=== PATIENT | male | born 1980 | race African-American/Black ===

== ENCOUNTER 2016-11-04 19:59 | Inpatient (IN) | payer MEDICAID ==
[~2016-11-04] VITALS: Ht 165.1 cm; Wt 114.5 kg
[2016-11-04] MEDS ORDERED: HALOPERIDOL 5 MG TABLET PO PRN (20:45)
[2016-11-04 21:31] VITALS: BP 118/64
[2016-11-04] MEDS: ZOLPIDEM TARTRATE 10 MG TABLET PO PRN (22:08)
[2016-11-05 06:27] VITALS: BP 121/74
[2016-11-05 08:16] VITALS: BP 129/80
[2016-11-05 08:19] LABS: BASOPHILS % (AUTO) 0.6 % (0.0-2.0); EOSINOPHILS % (AUTO) 1.8 % (1.0-6.0); HEMATOCRIT 45.3 % (41-53); HEMOGLOBIN 14.3 g/dL (13.5-17.5); LYMPHOCYTES # (AUTO) 1.6 K/uL (1.0-4.8); LYMPHOCYTES % (AUTO) 29.4 % (22.0-44.0); MEAN CORPUSCULAR HEMOGLOBIN 25.7 pg (26.0-34.0); MEAN CORPUSCULAR HGB CONC 31.6 G/dL (31.0-37.0); MEAN CORPUSCULAR VOLUME 81 fL (80-100); MONOCYTES # (AUTO) 0.9 K/uL (0.1-1.0); MONOCYTES % (AUTO) 16.5 % (2.0-9.0); NEUTROPHILS # (AUTO) 2.7 K/uL (1.8-7.7); NEUTROPHILS % (AUTO) 51.7 % (40.0-70.0); PLATELET COUNT (AUTO) 319 K/uL (150-450); RED BLOOD CELL COUNT(AUTO) 5.56 MIL/uL (4.50-5.90); RED CELL DISTRIBUTION WIDTH 14.9 % (11.5-14.5); WHITE BLOOD COUNT (AUTO) 5.3 K/uL (4.5-11.0)
[2016-11-05] MEDS ORDERED: MAG HYDROX/AL HYDROX/SIMETH ES 30 ML SUSPENSION UDCUP PO PRN (08:30)
[2016-11-05] MEDS ORDERED: BACITRACIN 28.4 GM OINTMENT TP PRN (08:30)
[2016-11-05] MEDS ORDERED: CloNIDine HCL 0.1 MG TABLET PO PRN (08:30)
[2016-11-05] MEDS ORDERED: BENZOCAINE/MENTHOL LOZENGE MM PRN (08:30)
[2016-11-05] MEDS ORDERED: PETROLATUM,WHITE 71 GM JELLY TP PRN (08:30)
[2016-11-05] MEDS ORDERED: ACETAMINOPHEN 325 MG TABLET PO PRN (08:30)
[2016-11-05] MEDS ORDERED: ALBUTEROL SULFATE HFA 90 MCG/PUFF 8 GM INHALER IH PRN (08:30)
[2016-11-05] MEDS ORDERED: IBUPROFEN 600 MG TABLET PO PRN (08:30)
[2016-11-05] MEDS ORDERED: ONDANSETRON HCL 4 MG TABLET PO PRN (08:30)
[2016-11-05] MEDS ORDERED: MAGNESIUM HYDROXIDE SUSPENSION 30 ML UDCUP PO PRN (08:30)
[2016-11-05] MEDS ORDERED: LOPERAMIDE HCL 2 MG CAPSULE PO PRN (08:30)
[2016-11-05 08:41] LABS: HEMOGLOBIN A1C 6.1 % (4.5-6.2)
[2016-11-05 08:48] LABS: ALANINE AMINOTRANSFERASE 93 U/L (12-78); ALBUMIN 3.9 g/dL (3.4-5.0); ANION GAP 9 mmol/L (8-16); ASPARTATE AMINOTRANSFERASE 64 U/L (15-37); BILIRUBIN,TOTAL 0.7 mg/dL (0.1-1.0); CALCIUM, TOTAL 9.2 mg/dL (8.8-10.5); CARBON DIOXIDE 28 mmol/L (22-29); CHLORIDE 106 mmol/L (98-107); CHOL/HDL RATIO 2.6 (4.2-7.3); CREATININE 1.11 mg/dL (0.60-1.30); GLOMERULAR FILTR. RATE CALC > 60 mL/min (>60); POTASSIUM 3.9 mmol/L (3.5-5.1); SODIUM SERUM 143 mmol/L (136-145); THYROID STIMULATING HORMONE 1.72 uIU/mL (0.36-3.74); TOTAL PROTEIN, SERUM 8.1 g/dL (6.4-8.2); UREA NITROGEN, BLOOD 11 mg/dL (7-18)
[2016-11-05] MEDS: MAGNESIUM SULFATE 454 GM BOX TP SCH (09:00)
[2016-11-05] MEDS: TERBINAFINE HCL 1% 30 GM CREAM TP SCH ×2 (10:08→17:01)
[2016-11-05 16:10] VITALS: BP 132/65
[2016-11-05] MEDS: ZOLPIDEM TARTRATE 10 MG TABLET PO PRN (21:35)
[2016-11-06 00:38] VITALS: BP 124/76
[2016-11-06 08:13] VITALS: BP 131/68
[2016-11-06] MEDS: MAGNESIUM SULFATE 454 GM BOX TP SCH (09:00)
[2016-11-06] MEDS: TERBINAFINE HCL 1% 30 GM CREAM TP SCH ×2 (09:00→16:55)
[2016-11-06] MEDS ORDERED: SERTRALINE HCL 50 MG TABLET PO SCH (09:00)
[2016-11-06 16:00] VITALS: BP 136/77
[2016-11-06] MEDS: ZOLPIDEM TARTRATE 10 MG TABLET PO PRN (22:18)
[2016-11-07 03:36] VITALS: BP 126/77
[2016-11-07 08:13] VITALS: BP 107/63
[2016-11-07] MEDS: TERBINAFINE HCL 1% 30 GM CREAM TP SCH ×2 (08:15→16:07)
[2016-11-07] MEDS: LORazepam 2 MG TABLET PO PRN ×2 (08:15→16:21)
[2016-11-07] MEDS: SERTRALINE HCL 100 MG TABLET PO SCH (08:15)
[2016-11-07] MEDS: MAGNESIUM SULFATE 454 GM BOX TP SCH (08:16)
[2016-11-07 16:00] VITALS: BP 131/89
[2016-11-08 04:01] VITALS: BP 132/77
[2016-11-08 08:13] VITALS: BP 146/78
[2016-11-08] MEDS: MAGNESIUM SULFATE 454 GM BOX TP SCH (09:00)
[2016-11-08] MEDS: SERTRALINE HCL 100 MG TABLET PO SCH (09:12)
[2016-11-08] MEDS: TERBINAFINE HCL 1% 30 GM CREAM TP SCH ×2 (09:13→16:27)
[2016-11-08 16:00] VITALS: BP 138/65
[2016-11-08] MEDS: LORazepam 2 MG TABLET PO PRN (19:39)
[2016-11-08] MEDS: ZOLPIDEM TARTRATE 10 MG TABLET PO PRN (20:36)
[2016-11-09 03:42] VITALS: BP 130/74
[2016-11-09 08:45] VITALS: BP 125/63
[2016-11-09] MEDS: SERTRALINE HCL 100 MG TABLET PO SCH ×2 (09:00→10:51)
[2016-11-09] MEDS: TERBINAFINE HCL 1% 30 GM CREAM TP SCH ×3 (09:00→17:26)
[2016-11-09] MEDS: MAGNESIUM SULFATE 454 GM BOX TP SCH (09:00)
[2016-11-09] MEDS: LORazepam 2 MG TABLET PO PRN (10:51)
[2016-11-09 14:11] LABS: HEPATITIS Bs ANTIGEN SCREEN P Negative (Negative); HEPATITIS C AB SCREEN <0.1 s/co ratio (0.0-0.9)
[2016-11-09] MEDS ORDERED: LORazepam 2 MG/ML VIAL ONE (15:51)
[2016-11-09] MEDS ORDERED: HALOPERIDOL LACTATE 5 MG/ML VIAL ONE (15:52)
[2016-11-09] MEDS ORDERED: DiphenhydrAMINE HCL 50 MG/ML VIAL ONE (15:53)
[2016-11-09] MEDS ORDERED: LORazepam 2 MG/ML VIAL IM ONE (16:15)
[2016-11-09] MEDS ORDERED: HALOPERIDOL LACTATE 5 MG/ML VIAL IM ONE (16:15)
[2016-11-09] MEDS ORDERED: DiphenhydrAMINE HCL 50 MG/ML VIAL IM ONE (16:15)
[2016-11-09 16:38] VITALS: BP 138/72
[2016-11-09] MEDS: BACITRACIN 28.4 GM OINTMENT TP SCH (17:25)
[2016-11-10 06:48] VITALS: BP 125/61
[2016-11-10 08:13] VITALS: BP 134/72
[2016-11-10] MEDS ORDERED: TRIAMCINOLONE 0.1% 15 GM OINTMENT TP SCH (09:00)
[2016-11-10] MEDS ORDERED: NYSTATIN 30 GM CREAM TP SCH (09:00)
[2016-11-10] MEDS: SERTRALINE HCL 100 MG TABLET PO SCH (09:55)
[2016-11-10] MEDS: BACITRACIN 28.4 GM OINTMENT TP SCH (09:56)
[2016-11-10] MEDS: TERBINAFINE HCL 1% 30 GM CREAM TP SCH (09:56)
[2016-11-10] MEDS ORDERED: SERT100T12 PO (11:07)
== END 2016-11-10 13:30 | disposition home or self-care (01) | DRG 751 ==
LOC: B3A 20:44 → EDSTATUS 20:49
PROVIDERS: ATTEND Psychiatry & Neurology Psychiatry
DX: F33.2 Major depressive disorder, recurrent severe without psychotic features (principal); Z68.41 Body mass index [BMI] 40.0-44.9, adult; F12.90 Cannabis use, unspecified, uncomplicated; B35.3 Tinea pedis; B35.1 Tinea unguium; G47.00 Insomnia, unspecified; E66.01 Morbid (severe) obesity due to excess calories; Z88.8 Allergy status to other drugs, medicaments and biological substances; Z72.0 Tobacco use; Z91.14 Patient's other noncompliance with medication regimen
CPT/HCPCS: 80074; 83036; 84439; 84443; J1200; J1630; J2060

== ENCOUNTER 2016-11-11 20:15 | Inpatient (IN) | payer MEDICAID ==
[~2016-11-11] VITALS: Ht 167.6 cm; Wt 108.9 kg
[~2016-11-11 20:15] MED LIST: SERT100T12 PO
[2016-11-11 21:33] LABS: BASOPHILS % (AUTO) 0.1 % (0.0-2.0); EOSINOPHILS % (AUTO) 0.6 % (1.0-6.0); HEMATOCRIT 46.1 % (41-53); HEMOGLOBIN 14.7 g/dL (13.5-17.5); LYMPHOCYTES # (AUTO) 1.8 K/uL (1.0-4.8); LYMPHOCYTES % (AUTO) 25.2 % (22.0-44.0); MEAN CORPUSCULAR HEMOGLOBIN 25.4 pg (26.0-34.0); MEAN CORPUSCULAR HGB CONC 31.7 G/dL (31.0-37.0); MEAN CORPUSCULAR VOLUME 80 fL (80-100); MONOCYTES # (AUTO) 0.8 K/uL (0.1-1.0); MONOCYTES % (AUTO) 10.7 % (2.0-9.0); NEUTROPHILS # (AUTO) 4.6 K/uL (1.8-7.7); NEUTROPHILS % (AUTO) 63.4 % (40.0-70.0); PLATELET COUNT (AUTO) 360 K/uL (150-450); RED BLOOD CELL COUNT(AUTO) 5.77 MIL/uL (4.50-5.90); RED CELL DISTRIBUTION WIDTH 14.6 % (11.5-14.5); WHITE BLOOD COUNT (AUTO) 7.2 K/uL (4.5-11.0)
[2016-11-11 21:34] LABS: ANION GAP 11 mmol/L (8-16); CALCIUM, TOTAL 9.5 mg/dL (8.8-10.5); CARBON DIOXIDE 26 mmol/L (22-29); CHLORIDE 104 mmol/L (98-107); CREATININE 1.13 mg/dL (0.60-1.30); GLOMERULAR FILTR. RATE CALC > 60 mL/min (>60); POTASSIUM 3.6 mmol/L (3.5-5.1); SODIUM SERUM 141 mmol/L (136-145); UREA NITROGEN, BLOOD 15 mg/dL (7-18)
[2016-11-11 21:44] LABS: ALANINE AMINOTRANSFERASE 93 U/L (12-78); ASPARTATE AMINOTRANSFERASE 62 U/L (15-37); BILIRUBIN,TOTAL 0.6 mg/dL (0.1-1.0); TOTAL PROTEIN, SERUM 8.1 g/dL (6.4-8.2)
[2016-11-11] MEDS ORDERED: MAG HYDROX/AL HYDROX/SIMETH ES 30 ML SUSPENSION UDCUP PO PRN (22:45)
[2016-11-11] MEDS ORDERED: ACETAMINOPHEN 325 MG TABLET PO PRN (22:45)
[2016-11-11] MEDS ORDERED: MAGNESIUM HYDROXIDE SUSPENSION 30 ML UDCUP PO PRN (22:45)
[2016-11-11 23:04] LABS: CHOL/HDL RATIO 2.6 (4.2-7.3)
[2016-11-12] MEDS: ZOLPIDEM TARTRATE 10 MG TABLET PO PRN (02:29)
[2016-11-12 02:34] VITALS: BP 144/64
[2016-11-12 08:10] VITALS: BP 124/77
[2016-11-12] MEDS: HALOPERIDOL 5 MG TABLET PO PRN (08:38)
[2016-11-12] MEDS: LORazepam 2 MG TABLET PO PRN ×2 (08:38→16:14)
[2016-11-12] MEDS ORDERED: CloNIDine HCL 0.1 MG TABLET PO PRN (09:30)
[2016-11-12] MEDS ORDERED: ACETAMINOPHEN 325 MG TABLET PO PRN (09:30)
[2016-11-12] MEDS ORDERED: BACITRACIN 28.4 GM OINTMENT TP PRN (09:30)
[2016-11-12] MEDS ORDERED: LOPERAMIDE HCL 2 MG CAPSULE PO PRN (09:30)
[2016-11-12] MEDS ORDERED: PETROLATUM,WHITE 71 GM JELLY TP PRN (09:30)
[2016-11-12] MEDS ORDERED: ONDANSETRON HCL 4 MG TABLET PO PRN (09:30)
[2016-11-12] MEDS ORDERED: BENZOCAINE/MENTHOL LOZENGE MM PRN (09:30)
[2016-11-12] MEDS ORDERED: ALBUTEROL SULFATE HFA 90 MCG/PUFF 8 GM INHALER IH PRN (09:30)
[2016-11-12 16:10] VITALS: BP 126/72
[2016-11-13 05:16] VITALS: BP 122/70
[2016-11-13 08:34] VITALS: BP 113/63
[2016-11-13] MEDS: TERBINAFINE HCL 1% 30 GM CREAM TP SCH ×2 (09:00→16:56)
[2016-11-13] MEDS: AQUAPHOR OINTMENT 50 GM TUBE TP SCH ×2 (09:00→16:56)
[2016-11-13] MEDS: ARIPiprazole 5 MG TABLET PO SCH (09:08)
[2016-11-13] MEDS: SERTRALINE HCL 100 MG TABLET PO SCH (09:09)
[2016-11-13] MEDS: LORazepam 2 MG TABLET PO PRN ×2 (09:11→17:06)
[2016-11-13 16:00] VITALS: BP 120/75
[2016-11-13] MEDS: HALOPERIDOL 5 MG TABLET PO PRN (17:06)
[2016-11-13] MEDS: ZOLPIDEM TARTRATE 10 MG TABLET PO PRN (22:36)
[2016-11-14 05:08] VITALS: BP 118/76
[2016-11-14 08:26] VITALS: BP 104/65
[2016-11-14] MEDS: AQUAPHOR OINTMENT 50 GM TUBE TP SCH ×2 (09:23→16:57)
[2016-11-14] MEDS: ARIPiprazole 5 MG TABLET PO SCH (09:24)
[2016-11-14] MEDS: SERTRALINE HCL 100 MG TABLET PO SCH (09:24)
[2016-11-14] MEDS: TERBINAFINE HCL 1% 30 GM CREAM TP SCH ×2 (09:24→16:57)
[2016-11-14 16:09] VITALS: BP 114/68
[2016-11-14] MEDS: HALOPERIDOL 5 MG TABLET PO PRN (19:15)
[2016-11-14] MEDS: LORazepam 2 MG TABLET PO PRN (19:15)
[2016-11-14 20:34] VITALS: BP 128/69
[2016-11-14] MEDS: IBUPROFEN 600 MG TABLET PO PRN (20:35)
[2016-11-14] MEDS: ZOLPIDEM TARTRATE 10 MG TABLET PO PRN (20:36)
[2016-11-15 04:44] VITALS: BP 110/77
[2016-11-15 08:33] VITALS: BP 125/66
[2016-11-15] MEDS: TERBINAFINE HCL 1% 30 GM CREAM TP SCH ×2 (09:28→16:08)
[2016-11-15] MEDS: AQUAPHOR OINTMENT 50 GM TUBE TP SCH ×2 (09:28→16:08)
[2016-11-15] MEDS: ARIPiprazole 5 MG TABLET PO SCH (09:29)
[2016-11-15] MEDS: SERTRALINE HCL 100 MG TABLET PO SCH (09:29)
[2016-11-15 16:00] VITALS: BP 126/87
[2016-11-15] MEDS: HALOPERIDOL 5 MG TABLET PO PRN (16:08)
[2016-11-15] MEDS: LORazepam 2 MG TABLET PO PRN (16:08)
[2016-11-15 18:52] VITALS: BP 118/78
[2016-11-15] MEDS: IBUPROFEN 600 MG TABLET PO PRN (18:52)
[2016-11-16 05:19] VITALS: BP 115/71
[2016-11-16 08:10] VITALS: BP 137/67
[2016-11-16] MEDS: ARIPiprazole 5 MG TABLET PO SCH (08:17)
[2016-11-16] MEDS: SERTRALINE HCL 100 MG TABLET PO SCH (08:17)
[2016-11-16] MEDS: TERBINAFINE HCL 1% 30 GM CREAM TP SCH ×2 (08:19→16:58)
[2016-11-16] MEDS: AQUAPHOR OINTMENT 50 GM TUBE TP SCH ×2 (08:19→16:58)
[2016-11-16 08:31] LABS: CHOL/HDL RATIO 2.7 (4.2-7.3)
[2016-11-16] MEDS: CEPHALEXIN MONOHYDRATE 500 MG CAPSULE PO SCH ×2 (09:06→16:58)
[2016-11-16 15:00] VITALS: BP 127/87
[2016-11-16] MEDS: IBUPROFEN 600 MG TABLET PO PRN (15:00)
[2016-11-16 16:00] VITALS: BP 134/88
[2016-11-16] MEDS: HALOPERIDOL 5 MG TABLET PO PRN (16:58)
[2016-11-16] MEDS: LORazepam 2 MG TABLET PO PRN (16:58)
[2016-11-16] MEDS: ZOLPIDEM TARTRATE 10 MG TABLET PO PRN (20:27)
[2016-11-17 06:02] VITALS: BP 124/75
[2016-11-17 08:10] VITALS: BP 124/61
[2016-11-17] MEDS: IBUPROFEN 600 MG TABLET PO PRN (08:17)
[2016-11-17] MEDS: ARIPiprazole 10 MG TABLET PO SCH (08:17)
[2016-11-17] MEDS: SERTRALINE HCL 100 MG TABLET PO SCH (08:17)
[2016-11-17] MEDS: CEPHALEXIN MONOHYDRATE 500 MG CAPSULE PO SCH ×2 (08:17→16:34)
[2016-11-17] MEDS: NYSTATIN 30 GM CREAM TP SCH (08:18)
[2016-11-17] MEDS: TERBINAFINE HCL 1% 30 GM CREAM TP SCH ×2 (08:18→16:35)
[2016-11-17] MEDS: AQUAPHOR OINTMENT 50 GM TUBE TP SCH ×2 (08:20→16:34)
[2016-11-17] MEDS: MAGNESIUM SULFATE 454 GM BOX TP SCH (09:00)
[2016-11-17 15:10] LABS: HEPATITIS C AB SCREEN <0.1 s/co ratio (0.0-0.9)
[2016-11-17 16:00] VITALS: BP 131/70
[2016-11-17] MEDS: LORazepam 2 MG TABLET PO PRN (16:34)
[2016-11-17] MEDS: HALOPERIDOL 5 MG TABLET PO PRN (16:34)
[2016-11-18 04:25] VITALS: BP 128/67
[2016-11-18] MEDS: CEPHALEXIN MONOHYDRATE 500 MG CAPSULE PO SCH (08:22)
[2016-11-18] MEDS: ARIPiprazole 10 MG TABLET PO SCH (08:22)
[2016-11-18] MEDS: SERTRALINE HCL 100 MG TABLET PO SCH (08:22)
[2016-11-18 08:30] VITALS: BP 115/68
[2016-11-18 08:49] LABS: THYROID STIMULATING HORMONE 1.98 uIU/mL (0.36-3.74)
[2016-11-18] MEDS: MAGNESIUM SULFATE 454 GM BOX TP SCH (09:00)
[2016-11-18] MEDS ORDERED: SERT100T12 PO (10:04)
[2016-11-18] MEDS ORDERED: ARIP10TA14 PO (10:04)
[2016-11-18] MEDS ORDERED: CEPH500 PO (10:04)
[2016-11-18] MEDS: NYSTATIN 30 GM CREAM TP SCH (10:09)
[2016-11-18] MEDS: AQUAPHOR OINTMENT 50 GM TUBE TP SCH (10:09)
[2016-11-18] MEDS: TERBINAFINE HCL 1% 30 GM CREAM TP SCH (10:09)
== END 2016-11-18 13:30 | disposition home or self-care (01) | DRG 751 ==
LOC: EMS 20:17 → EEVIPCON 20:17 → B3A 23:41
PROVIDERS: ADMIT Psychiatry & Neurology Psychiatry; ATTEND Psychiatry & Neurology Psychiatry
DX: F33.2 Major depressive disorder, recurrent severe without psychotic features (principal); B35.3 Tinea pedis; E66.9 Obesity, unspecified; Z88.8 Allergy status to other drugs, medicaments and biological substances; G47.00 Insomnia, unspecified; Z72.0 Tobacco use; Z59.0 Homelessness; Z68.38 Body mass index [BMI] 38.0-38.9, adult
CPT/HCPCS: 84439; 84443; 86706; 86707; 86709; 86803; 87081; 87340; 87350; 99285; G0480

== ENCOUNTER 2018-05-22 22:11 | Inpatient (IN) | payer MEDICAID ==
[~2018-05-22] VITALS: Ht 170.2 cm; Wt 113.1 kg
[~2018-05-22 22:11] MED LIST changes: +ARIP10TA8 PO
[2018-05-22 22:56] LABS: BASOPHILS % (AUTO) 0.5 % (0.0-2.0); EOSINOPHILS % (AUTO) 1.7 % (1.0-6.0); HEMATOCRIT 42.6 % (41-53); HEMOGLOBIN 14.5 g/dL (13.5-17.5); LYMPHOCYTES # (AUTO) 2.5 K/uL (1.0-4.8); MEAN CORPUSCULAR HEMOGLOBIN 27.3 pg (26.0-34.0); MEAN CORPUSCULAR HGB CONC 34.1 G/dL (31.0-37.0); MEAN CORPUSCULAR VOLUME 80 fL (80-100); MONOCYTES # (AUTO) 0.7 K/uL (0.1-1.0); MONOCYTES % (AUTO) 8.5 % (2.0-9.0); NEUTROPHILS # (AUTO) 4.5 K/uL (1.8-7.7); NEUTROPHILS % (AUTO) 57.3 % (40.0-70.0); PLATELET COUNT (AUTO) 347 K/uL (150-450); RED BLOOD CELL COUNT(AUTO) 5.33 MIL/uL (4.50-5.90)
[2018-05-22 23:04] LABS: ANION GAP 8 mmol/L (8-16); CALCIUM, TOTAL 9.1 mg/dL (8.8-10.5); CARBON DIOXIDE 28 mmol/L (22-29); CHLORIDE 103 mmol/L (98-107); CREATININE 0.98 mg/dL (0.60-1.30); GLOMERULAR FILTR. RATE CALC > 60 mL/min (>60); GLUCOSE,RANDOM 75 mg/dL (70-110); POTASSIUM 3.6 mmol/L (3.5-5.1); SODIUM SERUM 139 mmol/L (136-145); UREA NITROGEN, BLOOD 13 mg/dL (7-18)
[2018-05-22 23:10] LABS: ALANINE AMINOTRANSFERASE 99 U/L (12-78); ALBUMIN 3.6 g/dL (3.4-5.0); ALKALINE PHOSPHATASE 123 U/L (46-116); ASPARTATE AMINOTRANSFERASE 48 U/L (15-37); BILIRUBIN,TOTAL 0.4 mg/dL (0.1-1.0); TOTAL PROTEIN, SERUM 7.7 g/dL (6.4-8.2)
[2018-05-23] MEDS ORDERED: QUEtiapine FUMARATE 100 MG TABLET PO PRN (02:30)
[2018-05-23] MEDS ORDERED: ZOLPIDEM TARTRATE 10 MG TABLET PO PRN (02:30)
[2018-05-23 04:05] VITALS: BP 109/69
[2018-05-23 08:14] VITALS: BP 121/67
[2018-05-23] MEDS ORDERED: LOPERAMIDE HCL 2 MG CAPSULE PO PRN (15:15)
[2018-05-23] MEDS ORDERED: MAGNESIUM HYDROXIDE SUSPENSION 30 ML UDCUP PO PRN (15:15)
[2018-05-23] MEDS ORDERED: HydrOXYzine PAMOATE 50 MG CAPSULE PO PRN (15:15)
[2018-05-23] MEDS ORDERED: MAG HYDROX/AL HYDROX/SIMETH ES 30 ML SUSPENSION UDCUP PO PRN (15:15)
[2018-05-23] MEDS ORDERED: GuaiFENesin/D-METHORPHAN [SUGAR-FREE] 200-20MG/10 ML SYRUP UDCUP PO PRN (15:15)
[2018-05-23] MEDS ORDERED: ACETAMINOPHEN 325 MG TABLET PO PRN (15:15)
[2018-05-23] MEDS ORDERED: PROMETHAZINE HCL 25 MG TABLET PO PRN (15:15)
[2018-05-23] MEDS ORDERED: TUBERCULIN, PURIFIED PROTEIN DERIVATIVE 5 TU/0.1 ML SYG ID ONE (15:15)
[2018-05-23] MEDS: THIAMINE HCL 100 MG TABLET PO SCH (16:28)
[2018-05-24 03:51] VITALS: BP 124/71
[2018-05-24] MEDS: LIOTHYRONINE SODIUM 5 MCG TABLET PO SCH (07:04)
[2018-05-24 09:13] VITALS: BP 124/70
[2018-05-24] MEDS: ARIPiprazole 10 MG TABLET PO SCH (09:26)
[2018-05-24] MEDS: SERTRALINE HCL 50 MG TABLET PO SCH (09:26)
[2018-05-24] MEDS: MULTIVITAMINS WITH MINERALS, THERAPEUTIC TABLET PO SCH (09:26)
[2018-05-24] MEDS: FOLIC ACID 1 MG TABLET PO SCH (09:26)
[2018-05-24] MEDS: NALTREXONE HCL 50 MG TABLET PO SCH (09:26)
[2018-05-24] MEDS: THIAMINE HCL 100 MG TABLET PO SCH ×2 (09:27→17:01)
[2018-05-24] MEDS: HALOPERIDOL 5 MG TABLET PO PRN ×2 (09:30→17:01)
[2018-05-24] MEDS: LORazepam 2 MG TABLET PO PRN ×2 (09:30→17:01)
[2018-05-24 10:01] LABS: CHOL/HDL RATIO 2.3 (4.2-7.3); FREE T4 (FREE THYROXINE) 0.82 ng/dL (0.76-1.46); THYROID STIMULATING HORMONE 1.92 uIU/mL (0.36-3.74)
[2018-05-24] MEDS: LACTULOSE 20 GM/30 ML SOLUTION UDCUP PO SCH (17:01)
[2018-05-25] MEDS: LIOTHYRONINE SODIUM 5 MCG TABLET PO SCH (06:23)
[2018-05-25 08:13] VITALS: BP 126/76
[2018-05-25] MEDS: FOLIC ACID 1 MG TABLET PO SCH (08:42)
[2018-05-25] MEDS: MULTIVITAMINS WITH MINERALS, THERAPEUTIC TABLET PO SCH (08:43)
[2018-05-25] MEDS: SERTRALINE HCL 50 MG TABLET PO SCH (08:43)
[2018-05-25] MEDS: LACTULOSE 20 GM/30 ML SOLUTION UDCUP PO SCH ×2 (08:43→16:17)
[2018-05-25] MEDS: THIAMINE HCL 100 MG TABLET PO SCH ×2 (08:43→16:16)
[2018-05-25] MEDS: NALTREXONE HCL 50 MG TABLET PO SCH ×2 (08:43→09:00)
[2018-05-25] MEDS: ARIPiprazole 10 MG TABLET PO SCH (09:00)
[2018-05-25 16:00] VITALS: BP 122/65
[2018-05-25] MEDS: LORazepam 2 MG TABLET PO PRN (16:17)
[2018-05-26 03:31] VITALS: BP 121/83
[2018-05-26] MEDS: LIOTHYRONINE SODIUM 5 MCG TABLET PO SCH (06:14)
[2018-05-26] MEDS: MULTIVITAMINS WITH MINERALS, THERAPEUTIC TABLET PO SCH (08:50)
[2018-05-26] MEDS: FOLIC ACID 1 MG TABLET PO SCH (08:50)
[2018-05-26] MEDS: THIAMINE HCL 100 MG TABLET PO SCH (08:50)
[2018-05-26] MEDS: SERTRALINE HCL 50 MG TABLET PO SCH (08:50)
[2018-05-26] MEDS: ARIPiprazole 10 MG TABLET PO SCH (08:50)
[2018-05-26] MEDS: NALTREXONE HCL 50 MG TABLET PO SCH (08:50)
[2018-05-26] MEDS: LACTULOSE 20 GM/30 ML SOLUTION UDCUP PO SCH (08:52)
[2018-05-26 09:11] VITALS: BP 129/82
[2018-05-26] MEDS ORDERED: SERT50TA12 PO ×2 (13:22→16:00)
[2018-05-26] MEDS ORDERED: ARIP10TA8 PO ×2 (13:22→16:00)
[2018-05-26] MEDS ORDERED: LIOT5 PO ×2 (13:22→15:58)
[2018-05-26] MEDS ORDERED: NALT50TA PO (13:22)
[2018-05-26] MEDS ORDERED: LACT30L PO (15:58)
[2018-05-26] MEDS ORDERED: NALT50TA6 PO (16:00)
== END 2018-05-26 16:35 | disposition home or self-care (01) | DRG 750 ==
LOC: EMS 22:12 → B3A 05-23 02:39
PROVIDERS: ADMIT Psychiatry & Neurology Psychiatry; ATTEND Psychiatry & Neurology Psychiatry
DX: F25.9 Schizoaffective disorder, unspecified (principal); Z91.19 Patient's noncompliance with other medical treatment and regimen; F12.90 Cannabis use, unspecified, uncomplicated; F17.200 Nicotine dependence, unspecified, uncomplicated; Z79.899 Other long term (current) drug therapy; Z90.49 Acquired absence of other specified parts of digestive tract
CPT/HCPCS: 80074; 84439; 84443; 86592; 90686; G0480

== ENCOUNTER 2018-06-19 23:01 | Inpatient (IN) | payer MEDICAID ==
[~2018-06-19] VITALS: Ht 170.2 cm; Wt 116.3 kg
[~2018-06-19 23:01] MED LIST changes: +LACT30L PO; +LIOT5 PO; +NALT50TA PO; +NALT50TA6 PO; -SERT100T12 PO; +SERT50TA12 PO
[2018-06-19 23:25] LABS: BASOPHILS % (AUTO) 0.5 % (0.0-2.0); EOSINOPHILS % (AUTO) 1.3 % (1.0-6.0); HEMOGLOBIN 13.8 g/dL (13.5-17.5); LYMPHOCYTES % (AUTO) 25.3 % (22.0-44.0); MEAN CORPUSCULAR HEMOGLOBIN 26.9 pg (26.0-34.0); MEAN CORPUSCULAR HGB CONC 33.6 G/dL (31.0-37.0); MEAN CORPUSCULAR VOLUME 80 fL (80-100); MONOCYTES # (AUTO) 0.7 K/uL (0.1-1.0); MONOCYTES % (AUTO) 9.1 % (2.0-9.0); NEUTROPHILS % (AUTO) 63.8 % (40.0-70.0); PLATELET COUNT (AUTO) 340 K/uL (150-450); RED BLOOD CELL COUNT(AUTO) 5.11 MIL/uL (4.50-5.90); RED CELL DISTRIBUTION WIDTH 13.9 % (11.5-14.5)
[2018-06-19 23:32] LABS: ANION GAP 6 mmol/L (8-16); CARBON DIOXIDE 29 mmol/L (22-29); CHLORIDE 104 mmol/L (98-107); CREATININE 0.93 mg/dL (0.60-1.30); GLOMERULAR FILTR. RATE CALC > 60 mL/min (>60); GLUCOSE,RANDOM 118 mg/dL (70-110); POTASSIUM 4.4 mmol/L (3.5-5.1); SODIUM SERUM 139 mmol/L (136-145); UREA NITROGEN, BLOOD 16 mg/dL (7-18)
[2018-06-19 23:38] LABS: ALANINE AMINOTRANSFERASE 88 U/L (12-78); ALBUMIN 3.4 g/dL (3.4-5.0); ALKALINE PHOSPHATASE 113 U/L (46-116); ASPARTATE AMINOTRANSFERASE 55 U/L (15-37); BILIRUBIN,TOTAL 0.4 mg/dL (0.1-1.0); TOTAL PROTEIN, SERUM 7.5 g/dL (6.4-8.2)
[2018-06-20] MEDS ORDERED: HALOPERIDOL 5 MG TABLET PO PRN (01:15)
[2018-06-20] MEDS ORDERED: ZOLPIDEM TARTRATE 10 MG TABLET PO PRN (01:15)
[2018-06-20] MEDS ORDERED: LORazepam 2 MG TABLET PO PRN (01:15)
[2018-06-20 02:51] VITALS: BP 132/89
[2018-06-20] MEDS ORDERED: ACETAMINOPHEN 325 MG TABLET PO PRN ×2 (06:30→07:45)
[2018-06-20] MEDS ORDERED: IBUPROFEN 600 MG TABLET PO PRN (06:30)
[2018-06-20] MEDS ORDERED: LIOTHYRONINE SODIUM 5 MCG TABLET PO SCH (06:30)
[2018-06-20] MEDS ORDERED: MAGNESIUM HYDROXIDE SUSPENSION 30 ML UDCUP PO PRN (07:45)
[2018-06-20] MEDS ORDERED: GuaiFENesin/D-METHORPHAN [SUGAR-FREE] 200-20MG/10 ML SYRUP UDCUP PO PRN (07:45)
[2018-06-20] MEDS ORDERED: LOPERAMIDE HCL 2 MG CAPSULE PO PRN (07:45)
[2018-06-20] MEDS ORDERED: MAG HYDROX/AL HYDROX/SIMETH ES 30 ML SUSPENSION UDCUP PO PRN (07:45)
[2018-06-20] MEDS ORDERED: HydrOXYzine PAMOATE 50 MG CAPSULE PO PRN (07:45)
[2018-06-20] MEDS ORDERED: PROMETHAZINE HCL 25 MG TABLET PO PRN (07:45)
[2018-06-20 08:34] VITALS: BP 110/75
[2018-06-20] MEDS ORDERED: MULTIVITAMINS WITH MINERALS, THERAPEUTIC TABLET PO SCH (09:00)
[2018-06-20] MEDS ORDERED: THIAMINE HCL 100 MG TABLET PO SCH (09:00)
[2018-06-20] MEDS ORDERED: FOLIC ACID 1 MG TABLET PO SCH (09:00)
[2018-06-20] MEDS: ARIPiprazole 15 MG TABLET PO SCH (09:20)
[2018-06-20] MEDS: SERTRALINE HCL 50 MG TABLET PO SCH (09:20)
[2018-06-20] MEDS: MULTIVITAMINS WITH MINERALS, THERAPEUTIC TABLET PO SCH (09:20)
[2018-06-20] MEDS: FOLIC ACID 1 MG TABLET PO SCH (09:20)
[2018-06-20] MEDS: THIAMINE HCL 100 MG TABLET PO SCH ×2 (09:20→16:05)
[2018-06-20] MEDS: NALTREXONE HCL 50 MG TABLET PO SCH (09:20)
[2018-06-20] MEDS ORDERED: LIOTHYRONINE SODIUM 5 MCG TABLET PO ONE (11:00)
[2018-06-20 16:21] VITALS: BP 136/68
[2018-06-21 01:41] VITALS: BP 118/71
[2018-06-21] MEDS: LIOTHYRONINE SODIUM 5 MCG TABLET PO SCH (06:51)
[2018-06-21 08:21] LABS: CHOL/HDL RATIO 2.2 (4.2-7.3); FREE T4 (FREE THYROXINE) 0.84 ng/dL (0.76-1.46); THYROID STIMULATING HORMONE 0.67 uIU/mL (0.36-3.74)
[2018-06-21] MEDS: THIAMINE HCL 100 MG TABLET PO SCH ×2 (08:24→16:23)
[2018-06-21] MEDS: NALTREXONE HCL 50 MG TABLET PO SCH (08:24)
[2018-06-21] MEDS: SERTRALINE HCL 50 MG TABLET PO SCH (08:25)
[2018-06-21] MEDS: MULTIVITAMINS WITH MINERALS, THERAPEUTIC TABLET PO SCH (08:25)
[2018-06-21] MEDS: FOLIC ACID 1 MG TABLET PO SCH (08:25)
[2018-06-21] MEDS: ARIPiprazole 15 MG TABLET PO SCH (08:26)
[2018-06-21 08:28] VITALS: BP 136/68
[2018-06-21] MEDS: TERBINAFINE HCL 1% 30 GM CREAM TP SCH ×2 (11:21→21:58)
[2018-06-21] MEDS ORDERED: NALT50TA PO (14:44)
[2018-06-21] MEDS ORDERED: LIOT5 PO (14:44)
[2018-06-21] MEDS ORDERED: SERT100T12 PO (14:44)
[2018-06-21] MEDS ORDERED: ARIP15TA2 PO (14:44)
[2018-06-21 16:22] VITALS: BP 140/93
[2018-06-22 00:12] VITALS: BP 138/63
[2018-06-22] MEDS: LIOTHYRONINE SODIUM 5 MCG TABLET PO SCH (06:35)
[2018-06-22] MEDS ORDERED: TERB30CR TP ×2 (07:59→08:02)
[2018-06-22] MEDS ORDERED: ARIP15TA2 PO (08:05)
[2018-06-22] MEDS ORDERED: SERT100T12 PO (08:05)
[2018-06-22] MEDS ORDERED: NALT50TA6 PO (08:07)
[2018-06-22] MEDS ORDERED: LIOT5 PO (08:12)
[2018-06-22 08:36] VITALS: BP_SYST 138
[2018-06-22] MEDS: THIAMINE HCL 100 MG TABLET PO SCH (08:51)
[2018-06-22] MEDS: FOLIC ACID 1 MG TABLET PO SCH (08:51)
[2018-06-22] MEDS: NALTREXONE HCL 50 MG TABLET PO SCH (08:51)
[2018-06-22] MEDS: ARIPiprazole 15 MG TABLET PO SCH (08:51)
[2018-06-22] MEDS: MULTIVITAMINS WITH MINERALS, THERAPEUTIC TABLET PO SCH (08:52)
[2018-06-22] MEDS: TERBINAFINE HCL 1% 30 GM CREAM TP SCH (08:54)
[2018-06-22] MEDS ORDERED: SERTRALINE HCL 100 MG TABLET PO SCH (09:00)
== END 2018-06-22 13:05 | disposition home or self-care (01) | DRG 750 ==
LOC: EMS 23:02 → B2S 06-20 00:42
PROVIDERS: ADMIT Psychiatry & Neurology Psychiatry; ATTEND Psychiatry & Neurology Psychiatry
DX: F25.9 Schizoaffective disorder, unspecified (principal); F32.2 Major depressive disorder, single episode, severe without psychotic features; R45.851 Suicidal ideations; Z59.0 Homelessness; Z91.19 Patient's noncompliance with other medical treatment and regimen; B35.3 Tinea pedis; E03.9 Hypothyroidism, unspecified; F12.90 Cannabis use, unspecified, uncomplicated; F60.0 Paranoid personality disorder; Z90.49 Acquired absence of other specified parts of digestive tract; Z79.899 Other long term (current) drug therapy
CPT/HCPCS: 84439; 84443; 84481; 87081; G0480